=== PATIENT | female | born 1965 | race Caucasian/White ===

== ENCOUNTER 2022-06-12 06:28 | Outpatient (CLI) | payer BC ==
[~2022-06-12] VITALS: Ht 167.7 cm; Wt 95.5 kg
== END 2022-06-17 15:10 | disposition home or self-care (01) ==
LOC: PREOP 06:28
PROVIDERS: ATTEND Otolaryngology Otolaryngology/Facial Plastic Surgery
DX: Z01.818 Encounter for other preprocedural examination (principal)

== ENCOUNTER 2022-06-19 08:04 | Day surgery (SDC) | payer BC ==
[2022-06-19] VITALS (12 sets, daily range): BP systolic 126–147; BP diastolic 78–109
[~2022-06-19] VITALS: Ht 167.7 cm; Wt 95.5 kg
[2022-06-19] MEDS ORDERED: COCAINE HCL 4% 2 ML SYR ONE (08:08)
[2022-06-19] MEDS ORDERED: LIDOCAINE/EPI 1%-1:100,000 (XYLOCAINE) 30ML ONE (08:08)
[2022-06-19] MEDS ORDERED: MUPIROCIN 2% OINT 22 GM (BACTROBAN) TUBE ONE (08:08)
[2022-06-19] MEDS ORDERED: PHENYLEPHRINE 0.5% NASAL SPR (NEO-SYNEPHRINE) REG ONE (08:09)
[2022-06-19] MEDS ORDERED: AMPICILL/SULB 1.5 GM VIAL (UNASYN) ONE (08:10)
[2022-06-19] MEDS ORDERED: ONDANSETRON 4 MG/2 ML (SDV) Z0FRAN ONE (08:15)
[2022-06-19] MEDS ORDERED: AMPICILLIN/SULBACTAM INJECTION 1.5 GM in NS (IVPB) 100 ML IV ONE (08:15)
[2022-06-19] MEDS ORDERED: HYDROCORTISONE 100 MG/2 ML (Solu-CORTEF) VIAL IV ONE (08:15)
[2022-06-19] MEDS ORDERED: FAMOTIDINE 20MG/2ML IV (PEPCID) ONE (08:16)
[2022-06-19 08:28] LABS: BASOPHILS # (AUTO) 0.1 10^3/uL (0.0-0.1); BASOPHILS % (AUTO) 1 % (0-10); EOSINOPHILS # (AUTO) 0.2 10^3/uL (0.0-0.3); EOSINOPHILS % (AUTO) 2 % (0-10); HEMATOCRIT 42 % (35-52); HEMOGLOBIN 13.9 g/dL (11.5-16.0); LYMPHOCYTES # (AUTO) 3.4 10^3/uL (1.0-4.0); LYMPHOCYTES % (AUTO) 37 % (12-44); MEAN CORPUSCULAR HEMOGLOBIN 29 pg (25-34); MEAN CORPUSCULAR HGB CONC 33 g/dL (32-36); MEAN CORPUSCULAR VOLUME 87 fL (80-99); MEAN PLATELET VOLUME 9.4 fL (9.0-12.2); MONOCYTES # (AUTO) 0.6 10^3/uL (0.0-1.0); MONOCYTES % (AUTO) 7 % (0-12); NEUTROPHILS # (AUTO) 4.9 10^3/uL (1.8-7.8); NEUTROPHILS % (AUTO) 53 % (42-75); PLATELET COUNT 294 10^3/uL (130-400); WHITE BLOOD COUNT 9.1 10^3/uL (4.3-11.0)
[2022-06-19] MEDS ORDERED: LIDOCAINE PF 2% 5 ML (XYLOCAINE) VIAL ONE (08:29)
[2022-06-19] MEDS ORDERED: ROCURONIUM 10 MG/ML 5 ML SYRINGE IV ONE (08:29)
[2022-06-19] MEDS ORDERED: GLYCOPYRROLATE 0.2 MG/ML (ROBINUL) 2 ML VIAL ONE (08:29)
[2022-06-19] MEDS ORDERED: proPOfol 200 MG/20 ML (DIPRIVAN) VIAL IV ONE (08:29)
[2022-06-19] MEDS ORDERED: ONDANSETRON 4 MG/2 ML (SDV) Z0FRAN IVP ONE (08:30)
[2022-06-19] MEDS ORDERED: fentaNYL INJ 100 MCG/2 ML AMP ONE (08:30)
[2022-06-19] MEDS ORDERED: MIDAZOLAM 2 MG/2 ML (VERSED) VIAL ONE (08:30)
[2022-06-19] MEDS ORDERED: FAMOTIDINE 20MG/2ML IV (PEPCID) IVP ONE (08:30)
[2022-06-19] MEDS: LACTATED RINGERS 1,000 ML IV PRN ×2 (08:31→09:06)
--- NOTE | 2022-06-19 08:31 | Progress Note-Pre Operative ---
Pre-Operative Progress Note Date of Available H&P: Jun 19, 2022 Date H&P Reviewed: Jun 19, 2022 Time H&P Reviewed: 08:15 History & Physical: H&P Reviewed, Patient Examed, No changes noted Changes from last HP none Pre-Operative Diagnosis: Bilat Chronic Sinusitis, Chronic Cough AMTY COOK MD Jun 19, 2022 08:31
--- NOTE | 2022-06-19 08:32 | Progress Note-Post Operative ---
Post-Operative Progess Note Surgeon (s)/Garbage Depot Worker (s) Surgeon MATY COOK MD Garbage [employer]ot Worker n/a Pre-Operative Diagnosis Bilat Chronic Sinusitis, Chronic Cough Post-Operative Diagnosis same Post-Op Procedure Note Date of Procedure: Jun 19, 2022 Name of Procedure Performed: Bilat ESS Description & Findings Description and Findings: n/a Anesthesia Type get Estimated Blood Loss minimal Packing none. Specimen(s) collected/removed Bilat Chronic Sinusitis MATY COOK MD Jun 19, 2022 08:32
[2022-06-19] MEDS ORDERED: HYDROcodone/APAP 5 MG/325 MG (LORTAB) TAB PO PRN (08:45)
[2022-06-19] MEDS ORDERED: predniSONE 20 MG TAB PO ONE ×2 (08:45→12:15)
[2022-06-19] MEDS ORDERED: PROMETHAZINE INJ 25 MG/ML (PHENERGAN) AMP IVP PRN (08:45)
[2022-06-19] MEDS ORDERED: D5 1/2 NS W/KCL 20 MEQ/L 1,000 ML IV SCH (08:45)
[2022-06-19] MEDS ORDERED: NEOSTIGMINE (BLOXIVERZ ) 1 MG/1ML 10 ML VIAL ONE (09:27)
[2022-06-19] MEDS ORDERED: BSS 15 ML ONE (09:32)
[2022-06-19] MEDS ORDERED: SEVOFLURANE (ULTANE) 15 ML INHAL SOLN ONE (09:40)
[2022-06-19] MEDS ORDERED: morphine INJ 10 MG/ML 1ML (SYR OR VIAL) IVP ONE (10:15)
[2022-06-19] MEDS ORDERED: PROMETHAZINE INJ 25 MG/ML (PHENERGAN) AMP IVP ONE (10:15)
[2022-06-19] MEDS ORDERED: HYDROmorphone 2 MG/ML VIAL (DILAUDID) IV ONE (10:15)
[2022-06-19] MEDS: ONDANSETRON 4 MG/2 ML (SDV) Z0FRAN IVP PRN ×2 (10:44→11:08)
[2022-06-19] MEDS ORDERED: ACHD5005 PO (11:37)
[2022-06-19] MEDS ORDERED: ONDA4TAB11 SL (11:37)
[2022-06-19] MEDS ORDERED: AMOX-355 PO (11:37)
[2022-06-19] MEDS ORDERED: PRD20T PO (11:37)
--- NOTE | 2022-06-19 11:43 | Anesthesia-General Post-Op ---
General Patient Condition Mental Status/LOC: Same as Preop Cardiovascular: Satisfactory Nausea/Vomiting: Absent Respiratory: Satisfactory Pain: Controlled Complications: Absent Post Op Complications Complications None Follow Up Care/Instructions Patient Instructions None needed. Anesthesia/Patient Condition Patient Condition Patient is doing well in SDC with C/O a headache but it is improved after Rx. She has stable vital signs, no apparent adverse anesthesia problems. No complications reported per nursing. MICHELLE CURTIS DO Jun 19, 2022 11:43
== END 2022-06-19 12:25 | disposition home or self-care (01) ==
LOC: SDC 08:04
PROVIDERS: ATTEND Otolaryngology Otolaryngology/Facial Plastic Surgery
DX: J32.8 Other chronic sinusitis (principal); R05.3 Chronic cough; J30.89 Other allergic rhinitis; J30.1 Allergic rhinitis due to pollen
CPT/HCPCS: 36415; 85025; 87070; 87075; 87077; 87081; 87101; 87205